=== PATIENT | female | born 1975 | race Caucasian/White ===

== ENCOUNTER → 2023-12-07 15:46 | Outpatient (REF) | payer BC, SELFPAY | LOC: HWRAD 15:46 | PROVIDERS: ATTENDING PHYSICIAN Nurse Practitioner Family | DX: M25.561 Pain in right knee (principal) | CPT/HCPCS: 73564 ==

== ENCOUNTER → 2024-05-05 09:20 | Outpatient (REF) | payer BC, SELFPAY | LOC: RCS 09:20 | PROVIDERS: ATTENDING PHYSICIAN Nurse Practitioner Family | DX: R42 Dizziness and giddiness (principal) | CPT/HCPCS: 93225; 93226 ==

== ENCOUNTER → 2024-10-16 09:01 | Outpatient (REF) | payer BC, SELFPAY | LOC: HWWDC 09:01 | PROVIDERS: ATTENDING PHYSICIAN Nurse Practitioner; FAMILY PHYSICIAN Nurse Practitioner Family | DX: Z12.31 Encounter for screening mammogram for malignant neoplasm of breast (principal) | CPT/HCPCS: 77063; 77067 ==

== ENCOUNTER → 2024-10-24 12:45 | Outpatient (REF) | payer BC, SELFPAY | LOC: RCS 12:45 | PROVIDERS: ATTENDING PHYSICIAN Internal Medicine; FAMILY PHYSICIAN Nurse Practitioner Family | DX: R06.02 Shortness of breath (principal); R00.0 Tachycardia, unspecified; R00.2 Palpitations | CPT/HCPCS: 93306 ==

== ENCOUNTER → 2024-11-06 08:34 | Outpatient (REF) | payer BC, SELFPAY | LOC: WDC 08:34 | PROVIDERS: ATTENDING PHYSICIAN Internal Medicine; FAMILY PHYSICIAN Nurse Practitioner Family | DX: R92.8 Other abnormal and inconclusive findings on diagnostic imaging of breast (principal) | CPT/HCPCS: 76642 ==

== ENCOUNTER → 2025-06-01 13:20 | Outpatient (REF) | payer BC, SELFPAY ==
--- NOTE | 2025-05-29 16:28 | PN.DIAED02 ---
Referral
DSME Class Series Code: [id number]
Referred For: Diabetes Self-Management Training, Medical Nutrition Therapy, Self-Blood Glucose Monitoring, Long-Term Complication Instruction, Accute Complication Instruction, Continuous Glucose Monitoring, Medication management, Insulin
Instruction, Care Coordination, Disease Management
PHI Release Authorization Form Signed: Yes
Demographic
(1) Type 2 diabetes mellitus without complications
Status: Chronic
Qualifiers:
Diabetes mellitus correction insulin use: without oysterman use Qualified Code(s): E11.9 - Type 2 diabetes mellitus without complications
Code(s): E11.9 - Type 2 diabetes mellitus without complications
Patient's primary language-: Kazakh
Education: College degree
Occupation: Professional
Hours Worked/Week: > 40
- Social
Primary Support Person: Self & spouse
Primary Care Takers: Self & spouse
Living Arrangements: Self & spouse
- Learning Methods
Preferred Method: Video, Group discussion
Barriers to Learning: None
Glycemic Control
- Blood Glucose Monitoring Assessment
Blood glucose monitoring at home: No (GLUCOSE METER ORDER PENDING)
- Hyperglycemia Assessment
Experiences Hyperglycemia: No
- Hypoglycemia Assessment
Patient carries glucose source: No
Patient experiences hypoglycemia: No
- Hemoglobin A1c
Date: 05/01/25
A1C Percentage (%): 7.2
Medical History of Diabetes
Family Diabetes History: Grandfather
Previous Diabetes Education: No
Previous visit with Dietitian: No
Complications/Comorbidity/Specialist: Metabolic (DM2: MONJOURO RX PENDING), Other / symptoms (PALPITATIONS: DILTIAZEM 120 MG QD, MENOPAUSE: PROGESTERONE 200 MG)
Measures
- Anthropometrics
Height: 5 ft 2 in
Actual Weight: 215 lb 3.2 oz
- Blood Pressure / Pulse
Blood pressure: 130/82
- Diabetes Management
Medical Management for Diabetes: Complete physical exam (05/01/2025), Dental exam (11/2024), Dilated eye exam (07/2024), Foot exam (05/01/2025), Other (COVID VAX: 2019, 2020, 2021)
Self-Care
- Tobacco Usage
Do you now, or have you ever smoked?: Never smoked
- Alcohol & Drugs Usage
Drinks Alcohol: Yes
Amount/day: Social Occasions (2/YEAR)
- Meals & Dining
Meals & Dining: Patient skips meals: Yes, Food Intolerance / Allergy: No, Cultural / Latter Day Dietary Needs: No
Primary Food Turbo Electric Operator: Self
Primary Jordan Worker: Self
Dining Out Frequency: 1-3x per week
- Physical Activity
Physical Limitation: No
Patient participates in physical Activity: No (TOO BUSY AT [facility])
- Patient-Self Assessment
Diabetes Knowledge: Poor
Feelings About Diabetes: Acceptance
General Health: Good
Importance of Health: Extremely
Stress Level: High
Diabetes Interferes With:: Finances
Depression Survey Score: 4
- Diabetes Identification
Carries Diabetes Identification: No
Diabetes Identification Information Provided: Yes
Care Plan
- Education Needs
Patient Education Needs: Diabetes disease process, Chronic complications, Acute complications, Medication, Monitoring, Physical activity, Psychosocial Adjustment, Nutritional management, Goal setting & problem solving
Recommended Diabetes Training Program based on assessment: Outpatient Diabetes Education Program
- Plan of Care
Plan of Care:
Met with participant today for registration and initiation of Diabetes Self-management. Pt was recommended by his PCP due to HbA1c of 7.2% on
05/01/2025. She contacted insurance, the cost is subject to her deductible of $3800 and she has accumulated $1800 YTD. She understand the class will be an OOP cost, plans to contact billing for a payment plan. We discussed individual DSME and RD
appointments at a pace she is comfortable with, she states she prefers the 5 week course.
States she has had prediabetes for several years. Is newly prescribed Mounjaro mg once a week, and expects to pick this up over the weekend. Per her PBM the cost will be $100. I directed her to [employer] for a possible coupon, she will call to see
if she is eligible. No other medications for diabetes.
She does not monitor glucose, her provider placed an order for a glucometer and she will pick this up over the weekend. She has a glucometer from a year ago from [facility], I advised her to check the test strips and if they are they are not
to be used. We did not have time to review SMBG as she had to leave the appointment for an MD appt. I recommended she check once a day in the AM and alternate 2 hours after meals and review with provider.
We reviewed complications of diabetes, fasting and 2 hour post prandial glucose goals, signs and symptoms of hyperglycemia, signs and symptoms of hypoglycemia, and hypoglycemia protocol. We discussed exercise recommendations of at least 30 minutes
per day to help lower glucose levels.
She currently does not exercise, she is very busy with work. Discussed incorporating exercise to help lower her glucose levels.
I reviewed and provided diabetes management booklet and glucose testing log.
She has phone # for office if additional needs arise prior to class.
--- NOTE | 2025-05-29 16:44 | PN.DIAED04 ---
Education Record
- Education Record
Class Attended: Other (DSME INITIAL CONSULTATION)
DSME Class Series Code: [id number]
Instructor: Registered Nurse (Rosalina Sandoval RN)
Pre-Program Knowledge: Needs review / Assistance
Pre-Test Score (%): 56
Goals
- Goal 1
Being Active: Exercise more often
Goals To Be Evaluated: Exercise more often
- Goal 2
Healthy Eating: Make better food choices
Goals To Be Evaluated: Make better food choices
- Goal 3
Monitoring: Monitor more often (QD ALTERNATING FASTING AM AND 2 HOURS PP)
Goals To Be Evaluated: Monitor more often
--- NOTE | 2025-06-03 13:45 | PN.DIAED14 ---
This is to notify you that your patient with diabetes, PAO NAIR ( 1975), has enrolled in our diabetes self-management classes that are being held at [facility].
These classes will include an introduction to diabetes, diet, medication, exercise and prevention of complications. At the end of our class series, you will receive a report of your patient's participation and progress for your records.
Please contact me at the Diabetes [facility], , if there is any particular information regarding your patient that might be helpful to me.
Sincerely,
Octavio MARROQUIN-EUSEBIA, [facility]
--- NOTE | 2025-06-03 13:45 | PN.DIAED04 ---
Education Record
- Education Record
Class Attended: Class 1
DSME Class Series Code: [id number]
Instructor: Registered Nurse (Rosalina Sandoval RN)
Class Curriculum:
Outpatient Diabetes Education Program:
Class 1 (120 minutes)
Describe the diabetes disease process and treatment options
Diabetes management
Develop personal strategies to promote health and behavior change
Integrate psychosocial adjustment for daily living
Monitor blood glucose and other parameters. Interpret and use the results for self-management decision making
Prevent, detect, and treat acute complications
Class Length (mins): 120
Post-Class 1 Test Score (%): 88
== END ==
LOC: DES 13:20
PROVIDERS: ATTENDING PHYSICIAN Nurse Practitioner Family
DX: E11.9 Type 2 diabetes mellitus without complications (principal)
CPT/HCPCS: 99078

== ENCOUNTER → 2025-06-08 09:59 | Outpatient (REF) | payer BC, SELFPAY ==
--- NOTE | 2025-06-09 10:13 | PN.DIAED04 ---
Education Record
- Education Record
Class Attended: Class 2
DSME Class Series Code: [id number]
Instructor: Registered Dietitian (Elena Spring, RD, LDN, CDE)
Class Curriculum:
Outpatient Diabetes Education Program:
Class 2 (120 minutes)
Incorporate nutritional management into lifestyle
Understanding nutritional value
Understanding carbohydrate counting
Class Length (mins): 120
== END ==
LOC: DES 09:59
PROVIDERS: ATTENDING PHYSICIAN Nurse Practitioner Family
DX: E11.9 Type 2 diabetes mellitus without complications (principal)
CPT/HCPCS: 99078

== ENCOUNTER → 2025-06-10 08:01 | Outpatient (REF) | payer BC, SELFPAY | LOC: HWRAD 08:01 | PROVIDERS: ATTENDING PHYSICIAN Nurse Practitioner Family | DX: R94.5 Abnormal results of liver function studies (principal) | CPT/HCPCS: 76700 ==

== ENCOUNTER → 2025-06-15 11:09 | Outpatient (REF) | payer BC, SELFPAY ==
--- NOTE | 2025-06-17 12:17 | PN.DIAED04 ---
Education Record
- Education Record
Class Attended: Class 3
DSME Class Series Code: [id number]
Instructor: Registered Dietitian (Elena Spring, RD, LDN, CDE)
Class Curriculum:
Outpatient Diabetes Education Program:
Class 3 (120 minutes)
Incorporate nutritional management into lifestyle
Class Length (mins): 120
Post-Class 2 & 3 Test Score (%): 88
== END ==
LOC: DES 11:09
PROVIDERS: ATTENDING PHYSICIAN Nurse Practitioner Family
DX: E11.9 Type 2 diabetes mellitus without complications (principal)
CPT/HCPCS: 99078

== ENCOUNTER → 2025-06-22 09:40 | Outpatient (REF) | payer BC, SELFPAY ==
--- NOTE | 2025-06-24 12:05 | PN.DIAED04 ---
Education Record
- Education Record
Class Attended: Class 4
DSME Class Series Code: [id number]
Instructor: Nurse Practitioner (CARA Mary)
Class Curriculum:
Outpatient Diabetes Education Program:
Class 4 (120 minutes)
Develop personal strategies to promote health and behavior change
Incorporate physical activity into lifestyle
Utilize medications safety for maximum therapeutic effectiveness
Understand different medication/insulin mechanism of action
Preparing for travel
Class Length (mins): 120
Post-Class 4 Test Score (%): 93
== END ==
LOC: DES 09:40
PROVIDERS: ATTENDING PHYSICIAN Nurse Practitioner Family
DX: E11.9 Type 2 diabetes mellitus without complications (principal)
CPT/HCPCS: 99078

== ENCOUNTER → 2025-06-29 09:28 | Outpatient (REF) | payer BC, SELFPAY ==
--- NOTE | 2025-07-01 13:33 | PN.DIAED04 ---
Education Record
- Education Record
Class Attended: Class 5
DSME Class Series Code: [id number]
Instructor: Registered Nurse (Rosalina Sandoval RN)
Class Curriculum:
Outpatient Diabetes Education Program:
Class 5 (120 minutes)
Prevent, detect, and treat acute complications
Prevent, detect, and treat chronic complications through risk reduction
Develop personal strategies to address psychosocial issues and concerns
Development of diabetes self-management support plan
Letter to physician with DSMS plan attached sent
Class Length (mins): 120
Post-Program Knowledge: Demonstrates competency
Post-Test Score (%): 75
Post-Program Assessment
- Post-Program Assessment
Actual Weight: 207 lb
Blood pressure: 124/70
Post-Program Depression Survey Score: 3
Reviewing Previous Goals?: Yes
Pre-Program Depression Survey Score: 4
- Goals 1 Evaluation
Goals To Be Evaluated: Exercise more often
- Goals 2 Evaluation
Goals To Be Evaluated: Make better food choices
- Goals 3 Evaluation
Goals To Be Evaluated: Monitor more often
--- NOTE | 2025-07-01 13:36 | PN.DIAED16 ---
This is to notify you that your patient with diabetes, PAO NAIR ( 1975), has attended the entire series of Diabetes Self-Management Education Classes.
Class 1 (120 minutes): Diabetes Overview - monitoring, stress/psychosocial adjustment, support, goal setting
Class 2 (120 minutes): Meal Planning - serving sizes, menu plans
Class 3 (120 minutes): Introduction to Carbohydrate Counting, Analyzing Food Labels
Class 4 (120 minutes): Medication, Exercise and Activity
Class 5 (120 minutes): Sick Day Management, Strategies to Reduce Complications, Problem Solving, Resources
The following behavioral goals were identified:
Exercise more often
Make better food choices
Monitor more often
A follow-up call will be made within three to six months to evaluate attainment of these goals and to check post-program Hemoglobin A1c and overall progress. All class participants are encouraged to contact me if I can be any further assistance in
learning how to manage their diabetes.
Sincerely,
Octavio MARROQUIN-EUSEBIA,[facility]
== END ==
LOC: DES 09:28
PROVIDERS: ATTENDING PHYSICIAN Nurse Practitioner Family
DX: E11.9 Type 2 diabetes mellitus without complications (principal)
CPT/HCPCS: 99078